=== PATIENT | female | born 1960 | race Hispanic/Latino ===

== ENCOUNTER 2018-01-05 16:33 | Inpatient (IN) | payer MEDICAID ==
[2018-01-05 18:27] LABS: BASO % 0.2 % (0.0-2.0); EOS % 0.3 % (0.0-4.0); HEMOGLOBIN 13.8 g/dL (11.0-16.0); LYMPH # 3.7 K/uL (1.0-4.3); LYMPH % 36.8 % (20.0-40.0); MEAN CELL VOLUME 89.6 fL (81.0-99.0); MEAN CORPUSCULAR HEMOGLOBIN 30.6 pg (27.0-31.0); MEAN CORPUSCULAR HGB CONC 34.2 g/dL (33.0-37.0); MEAN PLATELET VOLUME 7.8 fL (7.2-11.7); MONO # 0.7 K/uL (0.0-0.8); MONO % 6.5 % (0.0-10.0); NEUT # 5.7 K/uL (1.8-7.0); NEUT % 56.2 % (50.0-75.0); RBC 4.51 Mil/uL (3.80-5.20); RED CELL DISTRIBUTION WIDTH 14.5 % (11.5-14.5); WHITE BLOOD COUNT 10.1 K/uL (4.8-10.8)
[2018-01-05 18:30] LABS: SQUAMOUS EPITHIAL 1 /hpf (0-5); URINE BILIRUBIN NEGATIVE (NEGATIVE); URINE BLOOD NEGATIVE (NEGATIVE); URINE CLARITY Hazy (Clear); URINE COLOR Yellow (YELLOW); URINE GLUCOSE (UA) NORMAL (Normal); URINE LEUKOCYTE ESTERASE NEG Leu/uL (Negative); URINE NITRATE NEGATIVE (NEGATIVE); URINE PROTEIN NEGATIVE (NEGATIVE); URINE UROBILINOGEN NORMAL mg/dL (0.2-1.0)
[2018-01-05 18:39] LABS: ALBUMIN 4.2 g/dL (3.5-5.0); ALT/SGPT 40 U/L (9-52); AST/SGOT 23 U/L (14-36); BLOOD UREA NITROGEN 16 mg/dL (7-17); CALCIUM 9.3 mg/dl (8.6-10.4); GFR AFRICAN-AMERICAN > 60; GFR NON-AFRICAN AMERICAN > 60
--- NOTE | 2018-01-05 18:43 | C.PDOC ---
History Of Present Illness <Colten Michael M - Last Filed: 01/05/18 18:50> <Camilo Campos - Last Filed: 01/05/18 20:44> 57 yr old female presents to the ER for detox from opioids and Xanax. Patient is pre-screened. Patient denies SI, HI or any physical complaints. (Colten Michael) History Per: Patient History/Exam Limitations: no limitations Onset/Duration Of Symptoms: Persistent Suicide/Self Injury Attempted (Context): None <Colten Michael M - Last Filed: 01/05/18 18:50> <Camilo Campos - Last Filed: 01/05/18 20:44> Time Seen by Provider: 01/05/18 17:57 Chief Complaint (Nursing): Substance Abuse Past Medical History Reviewed: Historical Data, Nursing Documentation, Vital Signs - Medical History PMH: Asthma, HTN Family History: States: No Known Family Hx - Social History Hx Alcohol Use: Yes Hx Substance Use: Yes - Immunization History Hx Tetanus Toxoid Vaccination: No Hx Influenza Vaccination: Yes Hx Pneumococcal Vaccination: No <Colten Michael M - Last Filed: 01/05/18 18:50> Vital Signs: Last Vital Signs Temp 97.9 F 01/05/18 17:24 Pulse 93 H 01/05/18 17:24 Resp 18 01/05/18 17:24 BP 133/91 H 01/05/18 17:24 Pulse Ox 100 01/05/18 18:50 Review Of Systems Except As Marked, All Systems Reviewed And Found Negative. Constitutional: Negative for: Fever Cardiovascular: Negative for: Chest Pain Respiratory: Negative for: Shortness of Breath Psych: Negative for: Suicidal ideation <Colten Michael M - Last Filed: 01/05/18 18:50> Physical Exam - Physical Exam Appears: Non-toxic, No Acute Distress Skin: Warm, Dry, No Rash Oral Mucosa: Moist Lips: Normal Appearing Cardiovascular: Rhythm Regular, No Murmur Respiratory: Normal Breath Sounds, No Rales, No Rhonchi, No Stridor, No Wheezing Gastrointestinal/Abdominal: Normal Exam, Soft, No Tenderness, No Guarding, No Rebound Neurological/Psych: Oriented x3, Normal Speech <Colten Michael - Last Filed: 01/05/18 18:50> ED Course And Treatment - Laboratory Results Result Diagrams: 01/05/18 18:24 01/05/18 18:24 O2 Sat by Pulse Oximetry: 100 (RA) Pulse Ox Interpretation: Normal Progress Note: Patient is medically cleared. <Colten Michael Lavon - Last Filed: 01/05/18 18:50> - Laboratory Results Result Diagrams: 01/05/18 18:24 03 18:24 <CamposRubyCamilo R - Last Filed: 01/05/18 20:44> Medical Decision Making <Colten Michael - Last Filed: 01/05/18 18:50> <Camilo Campos R - Last Filed: 01/05/18 20:44> Medical Decision Making: PLAN: * EKG * Alcohol Serum * Drug Screen * Labs * Urinalysis (Colten Michael) Disposition <Colten Michael Lavon - Last Filed: 01/05/18 18:50> Discussed With : Lauren Luke Doctor Will See Patient In The: Hospital Counseled Patient/Family Regarding: Diagnosis - Disposition Disposition Time: 20:43 <Camilo Campos - Last Filed: 01/05/18 20:44> - Disposition Disposition: HOSPITALIZED Condition: STABLE Forms: [facility] ([place]) - Clinical Impression Clinical Impression: Drug abuse - Scribe Statement The provider has reviewed the documentation as recorded by the Scribe <Colten Michael Lavon - Last Filed: 01/05/18 18:50> <Camilo Campos - Last Filed: 01/05/18 20:44> - Scribe Statement Rere Isbell (Colten Michael) Provider Attestation: All medical record entries made by the Scribe were at my direction and personally dictated by me. I have reviewed the chart and agree that the record accurately reflects my personal performance of the history, physical exam, medical decision making, and the department course for this patient. I have also personally directed, reviewed, and agree with the discharge instructions and disposition. (Colten Michael)
[2018-01-05 18:44] LABS: BARBITURATES, UR NEGATIVE (NEGATIVE); OPIATES, UR NEGATIVE (NEGATIVE); PHENCYCLIDINE, UR NEGATIVE (NEGATIVE)
[2018-01-05 19:07] LABS: BENZODIAZEPINES, UR POSITIVE (NEGATIVE)
--- NOTE | 2018-01-05 22:53 | PCM.BM ---
<Nedra Caputo - Last Filed: 01/05/18 22:52> Treatment Plan Problems - Problems identified on initial assessmt Potential for benzo withdrawal Date Initiated: 01/05/18 Time Initiated: 22:53 Date resolved: 01/05/18 Assessment reference: NA Status: Active Priority: 1 Treatment assets and liabiliti Patient Assests: negotiates basic needs, cognitively intact Patient Liabilities: substance abuse - Milieu Protocol Maintain good personal hygiene: daily Encourage regular showers, daily Remind patient to perform daily oral care, daily Assist patient to perform ADL's Conduct patient checks and document Observation sheet: Q15 minutes Maintain personal safety: every shift Educate patient to report safety concerns to staff, every shift Monitor environment for contraband/sharps Medication safety: Monitor for expected outcome, potential side effects: every shift, Assess barriers to learning: every shift, Assess readiness for medication education: every shift <Lauren Luke - Last Filed: 01/06/18 15:32> - Diagnosis (1) Opioid use disorder, severe, dependence Status: Acute Interventions: 01/06/18 15:32 * Assess 7x/week regarding severity of withdrawal * Educate regarding risks, benefits, side effects and alternatives of medications * Use Motivational Interviewing for abstinence * Use CBT for relapse prevention * Medication management for withdrawal symptoms * Encourage medication assisted treatment * (2) Sedative, hypnotic or anxiolytic use disorder, severe, dependence Status: Acute Interventions: 01/06/18 15:32 * Assess 7x/week regarding severity of withdrawal * Educate regarding risks, benefits, side effects and alternatives of medications * Use Motivational Interviewing for abstinence * Use CBT for relapse prevention * Medication management for withdrawal symptoms * Encourage medication assisted treatment *
[2018-01-06] MEDS: Multiple Vitamins Tab PO SCH (09:22)
[2018-01-06] MEDS: Pantoprazole 40 mg EC Tab PO SCH (10:27)
--- NOTE | 2018-01-06 12:20 | PCM.PSYCH ---
Initial Psychiatric Evaluation - Initial Psychiatric Evaluation Type of Admission: Voluntary Legal Status: Capacity Chief Complaint (in patient's own words): "I came here for detox" History of Present Illness and Precipitating Events: 57 yo F, single (recently lost her significant other of >20yrs, 3 months ago), with two children (35 yo & 38 yo), unemployed on disability, from [place] but currently living with one of her daughters in [place], [place], who presents to us for detox from benzodiazepines. Patient admits to >4mg Xanax/day for multiple years now. She even told our coordinator that she uses 6 mg "or more." She frequently takes more than her prescribed doses a day. Additionally, she will take other benzos such as Ativan when available to her. Patient is currently receiving chronic pain management in [place] for several years as well. Her regimen consists of 60mg MS Contin with 10mg Oxycodone for breakthru pain. She admits to use of heroin, methadone, and subutex in the past. Currently smokes 1ppd. Denies use of cocaine, marijuana or any other substances. Of note, she has a history of recurrent seizures in the past, with unknown etiology to her. Denies any prior overdoses, SI or attempts. Patient is otherwise in NAD. Denies any other complaints at this time. Her current plan after d/c includes stress care clinic. She is open to additional services and would like them to be closer to her daughters home. Detox Hx: Reports 4-5x for heroin in the past Rehab Hx: Denies Medical Hx: HTN, DVT, PAD (has bilateral angioplastys with stents), AAA (with stent), hiatal hernia, GERD, DJD (lumbar spine), Seizures Medications: Prilosec 40mg, Lisinopril 10mg, Norvasc 10mg, Flexeril, Dilantin, Reglan; Has taken Paxil in the past Psych Hx: "Social Anxiety disorder" Fam Hx: Denies Current Medications: Active Medications Generic Name Dose Route Start Last Admin Trade Name Freq PRN Reason Stop Dose Admin Amlodipine Besylate 10 mg 01/06/18 10:15 01/06/18 10:26 Norvasc PO 10 mg DAILY EDILMA Administration Aspirin 81 mg 01/06/18 10:00 01/06/18 09:22 Ecotrin PO 81 mg DAILY EDILMA Administration Chlordiazepoxide 25 mg 01/06/18 00:00 01/06/18 06:09 Librium PO 01/11/18 23:59 25 mg Q6H EDILMA Administration Taper Chlordiazepoxide 25 mg 01/05/18 23:24 Librium PO Q4H PRN Alcohol Withdrawal Clonidine HCl 0.1 mg 01/05/18 23:24 Catapres PO Q4H PRN Symptoms of alcohol withdrawl Cyclobenzaprine HCl 5 mg 01/05/18 22:34 01/06/18 10:26 Flexeril PO 5 mg Q6 PRN Administration muscle spasm Folic Acid 1 mg 01/06/18 10:00 01/06/18 09:22 Folic Acid PO 1 mg DAILY EDILMA Administration Ibuprofen 400 mg 01/05/18 23:30 Motrin Tab PO Q6H PRN Pain, moderate (4-7) Lisinopril 10 mg 01/06/18 10:15 01/06/18 10:26 Zestril PO 10 mg DAILY EDILMA Administration Multivitamins 1 tab 01/06/18 10:00 01/06/18 09:22 Hexavitamin PO 1 tab DAILY EDILMA Administration Pantoprazole Sodium 40 mg 01/06/18 10:15 01/06/18 10:27 Protonix Ec Tab PO 40 mg DAILY EDILMA Administration Phenytoin Sodium 100 mg 01/06/18 10:00 01/06/18 09:23 Dilantin PO 100 mg TID EDILMA Administration Quetiapine Fumarate 50 mg 01/05/18 22:39 01/05/18 22:43 Seroquel PO 50 mg HS EDILMA Administration Thiamine HCl 100 mg 01/06/18 10:00 01/06/18 09:22 Vitamin B1 Tab PO 100 mg DAILY EDILMA Administration Past Psychiatric History - Past Psychiatric History History of Abuse: denies History of ETOH/Drug Use: (+) opioids, benzos, heroin Pertinent Medical Hx (Current Medical&Sleep Prob, Allergies): Allergies Allergy/AdvReac Type Severity Reaction Status Date / Time risperidone [From Risperdal] Allergy Verified 01/05/18 17:24 tape Allergy Uncoded 01/05/18 17:24 Review of Systems - Constitutional Constitutional: absent: Fever, Chills, Sweats - Neurological Neurological: absent: Dizziness, Numbness, Focal Weakness, Headaches, Tremor, Weakness - Psychiatric Psychiatric: Anxiety, Irritability. absent: Auditory Hallucinations, Confusion , Hallucinations, Panic Attacks, Paranoia, Suicidal Ideation Additional comments: (+) sleeping disturbances Mental Status Examination - Personal Presentation Personal Presentation: Looks stated age - Affect Affect: Broad - Motor Activity Motor Activity: Calm - Reliability in Providing Information Reliability in Providing Information: Fair - Speech Speech: Disorganized - Mood Mood: Anxious - Formal Thought Process Formal Thought Process: No Impairment - Obsessions/Compulsions Obsessions: No Compulsions: No - Cognitive Functions Orientation: Person, Place, Situation, Time Sensorium: Alert Attention/Concentration: Easily distracted Abstract Thinking: [place] Estimate of Intelligence: Average Judgement: Intact, as evidence by: Insight regarding need for hospitalization Memory: Recent intact, as evidence by: Ability to recall events of the day, Remote intact, as evidenced by: Abilit to recall sig. life events Additional comments: Patient ambulates with cane - Risk Risk: Seizure, Withdrawal, Falls, Diminished functioning - Limitations Limitations: Other ((+) living situation complicated with her daughter, recent passing of her significant other) DSM 5 DX - DSM 5 DSM 5 Diagnosis: Opioid Withdrawal Opioid Use d/o - severe Sedative hypnotic anxiolytic use d/o severe, with withdrawal Anxiety d/o - unspecified Personality d/o- unspecified r/o SALVADOR - Recommended/Plan of Treatment Treatment Recommendations and Plan of Treatment: Librium detox Subutex detox when she starts to score more Patient declines use of Gabapentin (states that it makes her "gain weight") She doesn't want SSRIs and many other meds with vague concerns. Rigid about meds , except for xanax As needed medications All risks, benefits and alternatives of the meds discussed, and the pt agreed and understood. Attend groups and activities Supportive therapy and psychoeducation [place] for abstinence CBT for relapse prevention Encourage MAT Refer to rehab or IOP, and self-help groups Smoking cessation with [place] Nicotine patch 34 min Projected ELOS: 4-5 days Prognosis: Good with treatment - Smoking Cessation Smoking Cessation Initiated: Yes
[2018-01-06] MEDS: Albuterol HFA 90 mcg/actuation (8 g) INH PRN (21:21)
[2018-01-06] MEDS: Vitamins A & D Oint UD Foilpak TOP PRN (22:24)
--- NOTE | 2018-01-07 08:17 | PCM.PYCHPN ---
Psychiatric Progress Note - Psychiatric Progress Note Patient seen today, length of contact: 15 min Patient Chief Complaint: I am still withdrawing.' Problems Identified/Issues Discussed: Patient seen and evaluated, chart reviewed and discussed with the nurse. Patient reports withdrawal symptoms nausea, anxiety, and headaches. She reports improvement in her mood and denies any feelings of hopelessness and helplessness. Patient denies any auditory or visual hallucinations, or any psychotic symptoms. She reports improvement in his sleep and appetite. She is tolerating the withdrawal medications and denies any side effects. Supportive therapy and psychoeducation were given. Medication Change: Yes Medical Record Reviewed: Yes Mental Status Examination - Cognitive Function Orientation: Person, Place, Situation, Time Memory: Intact Attention: WNL Concentration: Poor Association: WNL Fund of Knowledge: Poor - Mood Mood: Anxious - Affect Affect: Broad - Speech Speech: Soft - Formal Thought Process Formal Thought Process: No Impairment - Suicidal Ideation Suicidal Ideation: No - Homicidal Ideation Homicidal Ideation: No Goal/Treatment Plan - Goal/Treatment Plan Need for Continued Stay: Severe depression anxiety, Severe functional impairment Progress Toward Problem(s) and Goals/Treatment Plan: Opioid Withdrawal Opioid Use d/o - severe Sedative hypnotic anxiolytic use d/o severe, with withdrawal Anxiety d/o - unspecified Personality d/o- unspecified r/o SALVADOR Librium detox Subutex detox when she starts to score more Patient declines use of Gabapentin (states that it makes her "gain weight") She doesn't want SSRIs and many other meds with vague concerns. Rigid about meds , except for xanax As needed medications All risks, benefits and alternatives of the meds discussed, and the pt agreed and understood. Attend groups and activities Supportive therapy and psychoeducation [place] for abstinence CBT for relapse prevention Encourage MAT Refer to rehab or IOP, and self-help groups Smoking cessation with [place] Nicotine patch - Smoking Cessation Smoking Cessation Initiated: No
--- NOTE | 2018-01-07 08:54 | CARD ---
APPROVED REPORT EKG Measurement Heart [id number] <Conclusion> Normal sinus rhythm Possible Left atrial enlargement Borderline ECG
[2018-01-07] MEDS: Multiple Vitamins Tab PO SCH (09:53)
[2018-01-07] MEDS: Pantoprazole 40 mg EC Tab PO SCH (09:54)
[2018-01-08] MEDS: Pantoprazole 40 mg EC Tab PO SCH (09:26)
[2018-01-08] MEDS: Multiple Vitamins Tab PO SCH (09:27)
--- NOTE | 2018-01-08 12:04 | PCM.PYCHPN ---
Psychiatric Progress Note - Psychiatric Progress Note Patient seen today, length of contact: 15 min Patient Chief Complaint: I am still experiencing feeling a lot of pain.' Problems Identified/Issues Discussed: Patient seen and evaluated, chart reviewed and discussed with the nurse. Patient reports a lot of pain in her back and knees, and planning to see pain doctor after discharge. She still reports withdrawal symptoms nausea, anxiety, sweating and headaches. She reports improvement in her mood and denies any feelings of hopelessness and helplessness. Patient denies any auditory or visual hallucinations, or any psychotic symptoms. She reports improvement in his sleep and appetite. She is tolerating the withdrawal medications and denies any side effects. Supportive therapy and psychoeducation were given. Medication Change: Yes (librium taper) Medical Record Reviewed: Yes Mental Status Examination - Cognitive Function Orientation: Person, Place, Situation, Time Memory: Intact Attention: WNL Concentration: Poor Association: WNL Fund of Knowledge: Poor - Mood Mood: Anxious - Affect Affect: Broad - Speech Speech: Soft - Formal Thought Process Formal Thought Process: No Impairment - Suicidal Ideation Suicidal Ideation: No - Homicidal Ideation Homicidal Ideation: No Goal/Treatment Plan - Goal/Treatment Plan Need for Continued Stay: Severe depression anxiety, Severe functional impairment Progress Toward Problem(s) and Goals/Treatment Plan: Opioid Withdrawal Opioid Use d/o - severe Sedative hypnotic anxiolytic use d/o severe, with withdrawal Anxiety d/o - unspecified Personality d/o- unspecified r/o SALVADOR Librium detox Subutex detox when she starts to score more Patient declines use of Gabapentin (states that it makes her "gain weight") She doesn't want SSRIs and many other meds with vague concerns. Rigid about meds , except for xanax As needed medications All risks, benefits and alternatives of the meds discussed, and the pt agreed and understood. Attend groups and activities Supportive therapy and psychoeducation [place] for abstinence CBT for relapse prevention Encourage MAT Refer to rehab or IOP, and self-help groups Smoking cessation with [place] Nicotine patch - Smoking Cessation Smoking Cessation Initiated: No
[2018-01-08 13:44] VITALS: RESP 18
[2018-01-09] MEDS: Multiple Vitamins Tab PO SCH (08:59)
[2018-01-09] MEDS: Pantoprazole 40 mg EC Tab PO SCH (09:00)
[2018-01-09] MEDS: Vitamins A & D Oint UD Foilpak TOP PRN (09:00)
[2018-01-09] MEDS: Albuterol HFA 90 mcg/actuation (8 g) INH PRN (09:01)
[2018-01-09 09:16] VITALS: BP 138/82; PULSE 80; TEMP 98; O2SAT 98
--- NOTE | 2018-01-09 09:56 | PCM.PYCHDC ---
Mental Status Examination - Mental Status Examination Orientation: Person, Place, Situation, Time Memory: Intact Mood: Neutral Affect: Broad Speech: Appropriate Attention: WNL Concentration: WNL Association: WNL Fund of Knowledge: WNL Formal Thought Process: No Impairment Suicidal Ideation: No Current Homicidal Ideation?: No Discharge Summary - Discharge Note Reason for Hospitalization: Opioid use d/o Opioid withdrawal Consultations:: List each consultation separately and include: 1. Reason for request. 2. Findings. 3. Follow-up Summary of Hospital Course include:: 1. Description of specific treatment plan utilized for patients during their course of treatmen. 2. Summarize the time- course for resolution of acute symptoms and/or regressed behaviors. 3. Describe issues identified and worked on during hospitalization. 4. Describe medication utilized. 5. Describe medical problems identified and treated. 6. Reassessment of suicide risk Summary of Hospital Course: HPI: 57 yo F, single (recently lost her significant other of >20yrs, 3 months ago), with two children (35 yo & 38 yo), unemployed on disability, from [place] but currently living with one of her daughters in [place], [place], who presents to us for detox from benzodiazepines. Patient admits to >4mg Xanax/day for multiple years now. She even told our coordinator that she uses 6 mg "or more." She frequently takes more than her prescribed doses a day. Additionally, she will take other benzos such as Ativan when available to her. Patient is currently receiving chronic pain management in [place] for several years as well. Her regimen consists of 60mg MS Contin with 10mg Oxycodone for breakthru pain. She admits to use of heroin, methadone, and subutex in the past. Currently smokes 1ppd. Denies use of cocaine, marijuana or any other substances. Of note, she has a history of recurrent seizures in the past, with unknown etiology to her. Denies any prior overdoses, SI or attempts. Patient is otherwise in NAD. Denies any other complaints at this time. Her current plan after d/c includes stress care clinic. She is open to additional services and would like them to be closer to her daughters home. Detox Hx: Reports 4-5x for heroin in the past Rehab Hx: Denies Medical Hx: HTN, DVT, PAD (has bilateral angioplastys with stents), AAA (with stent), hiatal hernia, GERD, DJD (lumbar spine), Seizures Medications: Prilosec 40mg, Lisinopril 10mg, Norvasc 10mg, Flexeril, Dilantin, Reglan; Has taken Paxil in the past Psych Hx: "Social Anxiety disorder" Fam Hx: Denies Hospital Course: The pt was admitted and started on treatment with psychotherapy, support, psychoeducation and medications. [place] and CBT used.The pt attended groups and activities, as well as milieu therapy.Patient successfully completed the full course of detox. No remarkable events were noted. Patient did report experiencing flares ups of her chronic back and bilateral leg pain during her stay. It was recommended to her to seek further care with outpatient physical therapy. All the risks and benefits of medications are discussed and the patient understood and agreed. The pt improved with the treatments provided. After care discussed with the patient. - Diagnosis (1) Opioid use disorder, severe, dependence Status: Acute (2) Sedative, hypnotic or anxiolytic use disorder, severe, dependence Status: Acute - Final Diagnosis (DSM 5) Condition upon Discharge: STABLE Disposition: HOME/ ROUTINE Follow-up Treatment Plan: Continue below medications after discharge. Follow after care plan as discussed. Use relapse prevention skills Return to ER or call 911 if suicidal, homicidal or symptoms relapse. Stay away from stress, alcohol and drugs. See primary doctor regularly and get labs. Prescriptions/Medication Reconciliation: amLODIPine [Norvasc] 10 mg PO DAILY #30 tab Aspirin [Ecotrin] 81 mg PO DAILY #30 tabec chlordiazePOXIDE [Librium] 25 mg PO BID #2 cap Lisinopril [Zestril] 10 mg PO DAILY #30 tab Pantoprazole [Protonix EC Tab] 40 mg PO DAILY #30 ect Phenytoin, Extended [Dilantin] 100 mg PO TID #90 cer QUEtiapine [SEROquel] 50 mg PO HS #30 tab
== END 2018-01-09 11:00 | disposition home or self-care (01) | DRG 745 ==
LOC: C.ER 16:33 → C.7D 20:44
PROVIDERS: ADMIT Psychiatry & Neurology Psychiatry; ATTEND Psychiatry & Neurology Psychiatry
PROC: HZ2ZZZZ Detoxification Services for Substance Abuse Treatment (ICD-10-PCS; principal; 2018-01-05)
PROC: HZ52ZZZ Individual Psychotherapy for Substance Abuse Treatment, Cognitive-Behavioral (ICD-10-PCS; 2018-01-05)
PROC: HZ42ZZZ Group Counseling for Substance Abuse Treatment, Cognitive-Behavioral (ICD-10-PCS; 2018-01-05)
PROC: HZ59ZZZ Individual Psychotherapy for Substance Abuse Treatment, Supportive (ICD-10-PCS; 2018-01-05)
PROC: HZ56ZZZ Individual Psychotherapy for Substance Abuse Treatment, Psychoeducation (ICD-10-PCS; 2018-01-05)
PROC: HZ46ZZZ Group Counseling for Substance Abuse Treatment, Psychoeducation (ICD-10-PCS; 2018-01-05)
DX: F11.23 Opioid dependence with withdrawal (principal); F10.230 Alcohol dependence with withdrawal, uncomplicated; F17.210 Nicotine dependence, cigarettes, uncomplicated; F13.230 Sedative, hypnotic or anxiolytic dependence with withdrawal, uncomplicated; I10 Essential (primary) hypertension; I70.209 Unspecified atherosclerosis of native arteries of extremities, unspecified extremity; K21.9 Gastro-esophageal reflux disease without esophagitis; M47.9 Spondylosis, unspecified; G40.909 Epilepsy, unspecified, not intractable, without status epilepticus; M62.838 Other muscle spasm; Y90.0 Blood alcohol level of less than 20 mg/100 ml; F41.1 Generalized anxiety disorder; F60.9 Personality disorder, unspecified